=== PATIENT | male | born 1995 | race Caucasian/White ===

== ENCOUNTER 2023-09-27 04:12 | Emergency (ER) | payer OTHER ==
[~2023-09-27] VITALS: Ht 167.6 cm; Wt 72.6 kg
[2023-09-27 04:13] VITALS: BP 126/90; PULSE 82; RESP 16; TEMP 97.3; O2SAT 96
[2023-09-27 04:30] VITALS: BP 126/90; PULSE 82; RESP 16; TEMP 97.3; O2SAT 96
== END 2023-09-27 04:45 ==
LOC: MED 04:12
DX: Z02.89 Encounter for other administrative examinations (principal); V49.88XA Car occupant (driver) (passenger) injured in other specified transport accidents, initial encounter; Y93.89 Activity, other specified; Y92.89 Other specified places as the place of occurrence of the external cause; Y99.8 Other external cause status
CPT/HCPCS: 99283